=== PATIENT | male | born 2005 | race Caucasian/White ===

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

== ENCOUNTER 2025-02-16 13:16 | Emergency (ER) | payer SELFPAY ==
[~2025-02-16] VITALS: Ht 172.7 cm; Wt 56.1 kg
[2025-02-16 13:29] VITALS: BP 127/69; PULSE 74; RESP 18; TEMP 98.8; O2SAT 100
[2025-02-16 15:48] LABS: STREP A SCREEN NEGATIVE (Neg)
--- NOTE | 2025-02-16 15:56 | Physician Documentation ---
History of Present Illness ~ Chief Complaint: Cold, cough & congestion Stated Complaint: CONGESTION Time Seen by MD: 14:08 HPI Is a very pleasant 19-year-old male that presents to the emergency department for evaluation of cough cold congestion, and sore throat times 2-3 days. Patient reports may have had fevers and chills over the las 2 days. Has felt generally unwell. Patient denies nausea vomiting diarrhea at this time. No other symptoms reported at this time. Medication Reconciliation Allergies: Coded Allergies: No Known Allergies (Unverified , 02/16/25) Past Medical History Past Medical History: No Pertinent History Past Surgical History: noncontributory Smoking Status: Current every day smoker Alcohol Use: None Drug Use: none Lives In: Home Review of Systems ROS As stated above in the HPI, otherwise all systems are reviewed and negative. Physical Exam Vital Signs: Temperature: 98.8, Source: Temporal, Heart Rate: 74, Respiratory Rate: 18, BP: 127/69, Pulse Oximetry: 100, Weight: 56.100 Oxygen Flow Rate: 0 Physical Exam VITALS: Reviewed and as above. GENERAL: Alert, no apparent distress. HEENT: Normocephalic, atraumatic, PERRL, EOMI, dry mucosa, mild erythema noted to the posterior oropharynx. RESPIRATORY: Lungs clear, normal breath sounds, no respiratory distress. CHEST: No accessory muscle use, no retractions CV: Regular rate, rhythm, no edema, no murmur, No: JVD GI: Soft, non-tender, bowels sounds present, no rebound, guarding, or rigidity BACK: No CVA tenderness, or swelling MUSCULOSKELETAL No deformities, no edema SKIN: Warm and dry, no rash NEURO: Oriented x4, No motor or sensory deficit PSYCH: Normal mood and affect, no agitation Progress Results/Orders Results/Orders Orders - TIARRA PANCHAL Cult Throat + R/O Beta Strep (02/16/25 15:48) Completed Orders - TIARRA PANCHAL Strep A Rapid (02/16/25 14:10) Vital Signs 02/16/25 13:29 Temp 98.8 Pulse 74 Resp 18 B/P (MAP) 127/69 Pulse Ox 100 O2 Flow Rate 0 Laboratory Tests Test 02/16/25 15:17 Group A Streptococcus Rapid Negative Medical Decision Making Additional information obtaine: other Findings 19-year-old male presented with acute onset cough, congestion, sore throat, fever, and chills for two days. Rapid streptococcal antigen test was negative. No evidence of bacterial pharyngitis or other complications. Assessment: Clinical presentation and negative rapid strep test are most consistent with a viral upper respiratory infection (URI). No findings to suggest bacterial infection, pneumonia, or other serious pathology. Symptoms are within the expected time course for viral URI, which typically peak within 3 days and resolve within 1014 days.[2-3][5] Medical Decision-Making: No antibiotics indicated; viral etiology is strongly favored and antibiotics are ineffective and potentially harmful in this context. Symptomatic management recommended: increased oral fluids, acetaminophen and/or ibuprofen as needed for fever and discomfort, and rest. Patient educated on expected symptom duration, risks of unnecessary antibiotics, and signs/symptoms that warrant return or further evaluation (e.g., worsening fever, respiratory distress, persistent symptoms >2 weeks, new focal findings). Advised to follow up with primary care provider and return to ED for any worsening or concerning symptoms. Plan: Supportive care: fluids, acetaminophen, ibuprofen, rest. No antibiotics prescribed. Follow-up with PCP. Return to ED for worsening symptoms or new concerning features as discussed. Disposition: Patient stable for discharge. All instructions reviewed and patient verbalized understanding. Differential Dx:Considerations: Include: Allergic rhinitis, Influenza, Otitis media, Peritonsillar abscess, Pharyngitis-Diphtheria, Pharyngitis-Streptoccal, Pharyngitis-Viral, Pneumonia, Pnuemonitis, Sinusitis, URI, Other Departure Disposition: 01 HOME / SELF CARE / HOMELESS Impression: Primary Impression: Upper respiratory infection Condition: Stable Discharge Instructions: Upper Respiratory Infection, Adult Additional Instructions: You have been diagnosed with a viral upper respiratory infection (URI), which commonly causes symptoms like cough, congestion, sore throat, fever, and chills. This illness is usually mild and gets better on its own. Most people start to feel better within 714 days, with symptoms peaking in the first few days and then gradually improving. Treatment and Home Care: Rest: Get plenty of rest to help your body recover. Fluids: Drink extra fluids such as water, juice, or clear soups to stay hydrated. Fever and Pain Relief: You may use acetaminophen (Tylenol) or ibuprofen as needed for fever, headache, or body aches. Follow the dosing instructions on the package. Other Symptom Relief: Saline nasal sprays or rinses may help with congestion. [id number] cold medications can be used for adults, but avoid these in children under four years old. Hand Hygiene: Wash your hands often to prevent spreading the virus to others. What to Expect: Symptoms usually improve within 714 days. It is normal for cough or congestion to last up to two weeks. Antibiotics are not needed for viral infections and will not help you get better faster. When to Seek Medical Attention: Return to the emergency department or contact your doctor if you experience: Worsening symptoms after initial improvement High fever (over 102F) lasting more than 34 days Difficulty breathing, chest pain, or severe headache Persistent symptoms beyond 14 days without improvement New or concerning symptoms discussed during your visit. Follow-Up: Schedule a follow-up with your primary care provider if you have any concerns or if symptoms are not improving as expected. If you have any questions about your care or medications, please contact your healthcare provider. Departure Forms: Excuse form Work or School Excused From: Work Excuse beginning now through the following date: Feb 16, 2025 May Return but still avoid physical Activity from now until: Feb 18, 2025 May Return to full physical activity as of: Feb 18, 2025 Referrals: NO PRIMARY CARE PROVIDER (PCP) Education Educated: Patient Educated regarding: diagnosis, treatment, need for follow up Signature Scribe Signature: A Attestation: Scribed for Tiarra Panchal by NKECHI Walton . 02/16/25 15:55 TIARRA PANCHAL Feb 16, 2025 15:56
== END 2025-02-16 16:25 | disposition home or self-care (01) ==
LOC: ER 13:16
DX: J06.9 Acute upper respiratory infection, unspecified (principal); F17.200 Nicotine dependence, unspecified, uncomplicated
CPT/HCPCS: 87081; 87880; 99283